=== PATIENT | female | born 1975 | race Caucasian/White ===

== ENCOUNTER 2016-09-24 05:43 | Day surgery (SDC) | payer BC ==
--- NOTE | ~2016-09-24 | EGD ---
EGD REPORT [place] [address] [id number] NAME: DENIS BAER : [birth year] STATUS : [place] 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 Estimated blood loss: None. Procedure: Pre-Anesthesia Assessment: - ASA Grade Assessment: III - A patient with severe systemic disease. After obtaining informed consent, the endoscope was passed under direct vision. Throughout the procedure, the patient's blood pressure, pulse, and oxygen saturations were monitored continuously. The GIF [id number] was introduced through the mouth, and advanced to the second part of duodenum. The upper GI endoscopy was accomplished without difficulty. The patient tolerated the procedure well. Findings: The esophagus and gastroesophageal junction were examined with white light. Walton's esophagus was present, extending from the upper extent of the gastric folds which were at 41 cm from the incisors to the Z-line which was at 41 cm from the incisors. One tongue of salmon-colored mucosa was present at 41 cm. The maximum longitudinal extent of these esophageal mucosal changes was 0.5 cm in length. Focal radiofrequency ablation of Walton's esophagus was performed. With the endoscope in place, the position and extent of the Walton's mucosa and the anatomic landmarks were noted. The endoscope was then removed from the patient. The Halo radiofrequency ablation catheter was attached to the tip of the endoscope. The endoscope with the attached radiofrequency ablation catheter was then passed transorally under direct vision into the esophagus and advanced to the areas of Walton's mucosa. The areas included tongues of Walton's mucosa. The radiofrequency ablation catheter was placed in contact with the surface of the Walton's mucosa under direct visualization and energy was applied twice at 12 J/cm2. Ablation was repeated in a likewise fashion to all visible Walton's mucosa. The ablation zone was cleaned of coagulative debris. The ablation catheter and endoscope were then removed and the catheter was cleaned. The catheter and endoscope were reinserted into the esophagus. EGD REPORT [place] [id number] [facility] [place]. [address] NAME: DENIS BAER : [birth year] STATUS : [facility]#: [id number] AGE: 41 ADM/REG DATE : 09/24/16 MR#: [id number] REPORT SERV DATE: 09/24/16 DICTATED BY: CRYS MONTALVO DATE: 09/24/16 REPORT STATUS : Draft TRANSCRIBED BY: [employer] DATE: 09/24/16 A second round of ablation was then performed. Energy was applied twice at 12 J/cm2 to retreat the areas of Walton's epithelium that had been treated with the first series of ablation. The areas of the esophagus where Walton's mucosa had been ablated were carefully examined. Areas of Walton's esophagus were completely treated. The exam of the esophagus was otherwise normal. The stomach was normal. The cardia and gastric fundus were normal on retroflexion. The examined duodenum was normal. Impression: - Walton's esophagus. Treated with radiofrequency ablation. - Normal stomach. - Normal examined duodenum. Recommendation: - Patient has a contact number available for emergencies. The signs and symptoms of potential delayed complications were discussed with the patient. Return to normal activities tomorrow. Written discharge instructions were provided to the patient. - Return to previous diet. - Continue present medications. - Repeat the upper endoscopy in 6 months for surveillance. Procedure Code(s): --- Professional --- 75252, Esophagogastroduodenoscopy, flexible, transoral; with ablation of tumor(s), polyp(s), or other lesion(s) (includes pre- and post-dilation and guide wire passage, when performed) Diagnosis Code(s): --- Professional --- K22.70, Walton's esophagus without dysplasia Z09, Encounter for follow-up examination after completed treatment for conditions other than malignant neoplasm CPT copyright 2013 [employer]. All rights reserved. The codes documented in this report are preliminary and upon counseling director review may be revised to meet current compliance requirements. CRYS MONTALVO, 09/24/2016 7:20 AM Number of Addenda: 0 EGD REPORT [place] [address] [address] NAME: DENIS BAER : [birth year] STATUS : [place] [facility] [place]#: [id number] AGE: 41 ADM/REG DATE : 09/24/16 MR#: [id number] REPORT SERV DATE: 09/24/16 DICTATED BY: CRYS MONTALVO DATE: 09/24/16 REPORT STATUS : Draft TRANSCRIBED BY: [employer] DATE: 09/24/16 Note Initiated On: 09/24/2016 7:00 AM [address] [place] [id number]
[~2016-09-24 05:43] MED LIST: CLARIT10 PO; KAPIDEX60 MG PO; LISINOPRIL40 MG PO; LOP25 PO; NEUR300 PO; [UNRECOGNIZED DRUG - REMARK]
== END 2016-09-24 23:59 | disposition home or self-care (01) ==
LOC: DMU 05:43
PROVIDERS: Internal Medicine Gastroenterology
PROC: 0D558ZZ Destruction of Esophagus, Via Natural or Artificial Opening Endoscopic (ICD-10-PCS; principal; 2016-09-24 07:00)
DX: K22.70 Barrett's esophagus without dysplasia (principal); I10 Essential (primary) hypertension; E66.01 Morbid (severe) obesity due to excess calories; G47.33 Obstructive sleep apnea (adult) (pediatric); Z98.51 Tubal ligation status; K21.9 Gastro-esophageal reflux disease without esophagitis; Z98.890 Other specified postprocedural states
CPT/HCPCS: 84703